=== PATIENT | male | born 1970 | race Caucasian/White ===

== ENCOUNTER 2017-04-23 21:58 | Emergency (ER) | payer SELFPAY ==
[2017-04-23 22:00] VITALS: BP 140/83; PULSE 92; RESP 15; TEMP 98.9; O2SAT 99
[2017-04-24] MEDS ORDERED: IBUP800T23 PO (10:06)
== END 2017-04-23 22:50 | disposition left against medical advice (07) ==
LOC: NED 21:58
DX: Z04.3 Encounter for examination and observation following other accident (principal); Z53.21 Procedure and treatment not carried out due to patient leaving prior to being seen by health care provider
CPT/HCPCS: 99281

== ENCOUNTER 2017-04-24 09:30 | Emergency (ER) | payer OTHER ==
[~2017-04-24] VITALS: Ht 180.3 cm; Wt 80.0 kg
[2017-04-24 09:32] VITALS: BP 127/86; PULSE 84; RESP 15; TEMP 98.2; O2SAT 98
--- NOTE | 2017-04-24 10:03 | PD ---
HPI Chief Complaint: Medical Clearance Time Seen by Provider: 09:45 Travel History International Travel<30 days: No Contact w/Intl Traveler<30days: No Traveled to known affect area: No History of Present Illness HPI 47-year-old male presents the emergency department requesting clearance for work. 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 Patient was seen at [facility] and had extensive workup including CT of the head, neck, lumbar spine and chest without any significant acute findings. Patient states he is a little stiff in the neck and shoulders this morning but otherwise feels fine his pain is 8/10 with movement. He has no numbness, tingling, or weakness. Patient has no headache or dizziness. He is requesting to return to work with full duties. Patient has no known drug allergies. [facility] Social History Alcohol Use: Yes Tobacco Use: Yes Substance Use: Yes Allergies-Medications (Allergen,Severity, Reaction): Coded Allergies: No Known Allergies (Unverified , 04/24/17) Review of Systems Except as stated in HPI: all other systems reviewed are Neg General / Constitutional: No: Fever Eyes: No: Visual changes HENT: No: Headaches Cardiovascular: No: Chest Pain or Discomfort Respiratory: No: Shortness of Breath Gastrointestinal: No: Abdominal Pain Genitourinary: No: Dysuria Musculoskeletal: No: Pain Skin: No Rash Neurologic: No: Weakness Psychiatric: No: Depression Endocrine: No: Polydipsia Hematologic/Lymphatic: No: Easy Bruising Physical Exam Narrative GENERAL: Patient is alert and oriented no acute distress. SKIN: Warm and dry. Normal color. Normal turgor. No obvious signs of trauma. HEAD: Atraumatic. Normocephalic. Nontender.. EYES: Pupils equal and round. No scleral icterus. No injection or drainage. ENT: No nasal bleeding or discharge. Mucous membranes pink and moist. Pharynx is clear. Airway is patent. TMs are clear. NECK: Trachea midline. Mild generalized soft tissue tenderness in the lower aspect of the cervical spine. No bony tenderness or step-off. Range of motion is full without tenderness. C-spine is cleared utilizing nexus criteria. CARDIOVASCULAR: Regular rate and rhythm. No murmurs gallops or rubs. RESPIRATORY: No accessory muscle use. Clear to auscultation. Breath sounds equal bilaterally. Generalized upper thoracic soft tissue tenderness bilaterally without specific point tenderness. GASTROINTESTINAL: Abdomen soft, non-tender, nondistended. Hepatic and splenic margins not palpable. MUSCULOSKELETAL: Extremities without clubbing, cyanosis, or edema. No obvious deformities. Patient is stiffness in both shoulders but is able to move fully with discomfort. There is no loss of function. NEUROLOGICAL: Awake and alert. No obvious cranial nerve deficits. Motor grossly within normal limits. Five out of 5 muscle strength in the arms and legs. Normal speech. PSYCHIATRIC: Appropriate mood and affect; insight and judgment normal. Data Data Last Documented VS Vital Signs Date Time Temp Pulse Resp B/P Pulse Ox O2 Delivery O2 Flow Rate FiO2 04/24/17 09:32 98.2 84 15 127/86 98 MDM Medical Decision Making Medical Screen Exam Complete: Yes Emergency Medical Condition: Yes Differential Diagnosis Workplace injury. Fall. Upper thoracic contusion. Cervical strain. Narrative Course Based on my history and physical feel the patient is fully capable of returning to work. He is given ibuprofen 800 mg 1 by mouth now. He'll be continued on ibuprofen 800 mg 3 times daily with food #30. Worker's comp form is completed returning him to full duties. Patient to follow up IF SYMPTOMS WORSEN NEEDED. Diagnosis Primary Impression: Work related injury Additional Impressions: Contusion of upper back Qualified Code: S20.229D - Contusion of upper back, unspecified laterality, subsequent encounter Cervical strain, acute Qualified Code: S16.1XXD - Acute strain of neck muscle, subsequent encounter Patient Instructions: Cervical Neck Strain Exercises (GEN), Cervical Strain (ED ), General Instructions, Upper Back Exercises (GEN) Additional Instructions: Based on my history and physical feel the patient is fully capable of returning to work. He is given ibuprofen 800 mg 1 by mouth now. He'll be continued on ibuprofen 800 mg 3 times daily with food #30. Worker's comp form is completed returning him to full duties. Patient to follow up IF SYMPTOMS WORSEN NEEDED. Med/Other Pt SpecificInfo: Prescription(s) given Disposition: DISCHARGE HOME Condition: Stable Jeffy Benitez Apr 24, 2017 10:03
[2017-04-24] MEDS ORDERED: IBUP800T23 PO (10:06)
[2017-04-24] MEDS ORDERED: IBUPROFEN 800 MG TAB PO ONE (10:15)
== END 2017-04-24 10:23 | disposition home or self-care (01) ==
LOC: NEPK 09:30
DX: S20.229A Contusion of unspecified back wall of thorax, initial encounter (principal); S16.1XXA Strain of muscle, fascia and tendon at neck level, initial encounter; W19.XXXA Unspecified fall, initial encounter; Y99.0 Civilian activity done for income or pay; Z72.0 Tobacco use
CPT/HCPCS: 99283